=== PATIENT | male | born 1960 | race Caucasian/White ===

== ENCOUNTER → 2021-05-20 | Outpatient (CLI) | payer OTHER | LOC: CAT 15:06 | PROVIDERS: ATTEND Family Medicine | DX: Z13.6 Encounter for screening for cardiovascular disorders (principal); I25.10 Atherosclerotic heart disease of native coronary artery without angina pectoris ==

== ENCOUNTER → 2021-05-20 | Outpatient (CLI) | payer BC | LOC: ULTRA 14:53 | PROVIDERS: ATTEND Family Medicine | DX: I65.23 Occlusion and stenosis of bilateral carotid arteries (principal); I10 Essential (primary) hypertension; R41.89 Other symptoms and signs involving cognitive functions and awareness ==